=== PATIENT | male | born 1995 | race Caucasian/White ===

== ENCOUNTER 2022-04-25 07:10 | Emergency (ER) | payer BC, OTHER ==
[~2022-04-25] VITALS: Ht 175.3 cm; Wt 86.2 kg
--- NOTE | 2022-04-25 07:30 | NUR ---
URINE SPECIMEN COLLECTED,TO ER 1 AWAITING MD HELM.
--- NOTE | 2022-04-25 07:31 | NUR ---
PT WALKED INTO ER C/O LUQ PAIN 10/13 X 3 DAYS. ADMITS TO NAUSEA. DENIES VOMITING, DIARRHEA, AND TRAUMA. PT AMBULATED TO BED WITH STEADY GAIT. AAOX4. VSS. AWAITING MD ORDERS. SAFETY PRECAUTIONS IN PLACE.
--- NOTE | 2022-04-25 07:45 | NUR ---
DR. CURRAN AT BEDSIDE FOR EVAL.
--- NOTE | 2022-04-25 07:51 | NUR ---
EMT AT BEDSIDE FOR EKG.
--- NOTE | 2022-04-25 07:59 | NUR ---
FUNERAL SERVICE APPRENTICE AT BEDSIDE.
[2022-04-25 08:12] VITALS: BP 132/78
--- NOTE | 2022-04-25 08:13 | NUR ---
Patient discharged to home in stable condition. Written and verbal after care instructions given. Patient verbalizes understanding of instruction.
== END 2022-04-25 08:13 | disposition home or self-care (01) ==
LOC: ER 07:17
DX: R07.89 Other chest pain (principal)
CPT/HCPCS: 71045-TC